=== PATIENT | female | born 1985 | race Caucasian/White ===

== ENCOUNTER 2019-01-31 09:01 | Emergency (ER) | payer BC, OTHER ==
--- NOTE | 2019-01-31 09:02 | PDOC ---
History of Present Illness - General Chief Complaint: Pain, Acute Stated Complaint: head pain Time Seen by Provider: 01/31/19 09:01 History Source: Patient Exam Limitations: No Limitations - History of Present Illness Initial Comments: 01/31/19 09:02 HPI 33 YOF with no significant medical history presenting with headache today. pt notes she bumped her head twice on the counter as she was cleaning in the kitchen 1 week ago. no LOC or seizure or AMS. the following day, she started having facial pain and sinus congestion, a/w intermittent nose bleeds with the heater on for her apartment. today she woke up with frontal headache, described as localized and pressure-like. also a/w right sided temporal headache, at the area where she hit her head. +right ear pain, feeling like there is fluid. +facial tingling. took NSAID this morning, without relief. LMP 1 week ago, normal, denies . prior ED visit for numbness/tingling, CT brain was unremarkable from 2016. Denies fever, chills, sore throat, eye pain/discharge, chest pain, SOB, palpitation, dizziness, weakness, N, V, D, abdominal pain, bladder and bowel problems, focal weakness/numbness, leg swelling/pain, rash. No sick contacts or travel. No new changes in medications. Allergies: None Past Medical History/PSH: as above Social history: Lives with family. No tobacco, ETOH or drug use. Meds: as documented in EMR Family history: noncontributory Review of systems Constitutional: no fevers or chills. No weakness HEENT: no dizziness, no visual or hearing disturbances, no eye pain or discharge. +headache, + ear pain +sinus congestion. CVS: no cp or syncope. Resp: no sob. No cough. Gastrointestinal: no abdominal pain, nausea, vomiting, diarrhea. Genitourinary: no urinary sx, hematuria. no retention or incontinence. MUSCULOSKELETAL: No joint pain and swelling. No neck or back pain. SKIN: no redness or skin changes, no discharge, no rash. No wounds. Hematologic: no easy bruising/bleeding. NEUROLOGIC: No dizziness, LOC, seizure or altered mental status. No weakness, + facial tinglilng. Psych: +anxiety. Allergic/Immunologic: no allergies All other systems reviewed and negative, or as documented in HPI. Physical exam General: Well appearing, awake and alert, NAD. HEENT: NCAT, PERRL, EOMI, clear conjunctiva, anicteric, moist mucus membranes, oropharynx clear. Airway patent, normal phonation. Uvula midline. no tonsillar hypertrophy. No sinus tenderness, TM clear, no pinna tenderness to manipulation. no epistaxis. +dry erythematous areas around nares. Neck: neck supple, FROM Resp: CTAB, normal and even respirations, no respiratory distress CVS: RRR, no murmurs, 2+ peripheral pulses throughout, no peripheral edema Abdomen: soft, NTND, no rebound or guarding. Back: nontender, normal inspection and ROM MSK: no edema, YOST x4, ROM intact. No clubbing or cyanosis. normal bulk and tone. Extremities: no calf tenderness Neuro: Alert, oriented appropriately. CN II-XII grossly intact. Strength prox and distally 5/5 throughout. Sensation grossly intact to light touch. YOST x4. No cerebellar signs, no dysmetria, bilateral finger to nose and heel to aranda equal and symmetric. Speech clear. Psych: Calm and cooperative Skin: warm and well perfused, cap refill <2 sec, normal color, no rash or skin discoloration. +dry erythematous areas around nose, no pus, no crusting, nontender. 01/31/19 09:25 Past History - Past Medical History Allergies/Adverse Reactions: Allergies Allergy/AdvReac Type Severity Reaction Status Date / Time No Known Allergies Allergy Verified 01/31/19 09:02 Home Medications: Ambulatory Orders Ibuprofen [Advil -] 200 mg PO PRN PRN 10/17/15 Anemia: Yes ("SLIGHT"-NO TREATMENT) Asthma: No Cancer: No Cardiac Disorders: No CVA: No COPD: No CHF: No Dementia: No Diabetes: No GI Disorders: No Disorders: No HTN: No Hypercholesterolemia: No Liver Disease: No Seizures: No Thyroid Disease: No - Psycho Social/Smoking Cessation Hx Smoking History: Never smoked Have you smoked in the past 12 months: No If you are a former smoker, when did you quit?: 05/2014 Hx Alcohol Use: No Drug/Substance Use Hx: No Substance Use Type: Alcohol Hx Substance Use Treatment: No Medical Decision Making - Medical Decision Making 01/31/19 09:21 Vital Signs Temp Pulse Resp BP Pulse Ox 98.9 F 72 15 107/70 99 01/31/19 09:01 01/31/19 09:01 01/31/19 09:01 01/31/19 09:01 01/31/19 09:01 33-year-old female presenting with frontal headache, does admit to sinus congestion and intermittent epistaxis due to the dry hot air in her apartment. She had remote head trauma about 1 week ago, no LOC or seizure or altered mental status. GCS is 15, neurologically intact. neurologic sx nonfocal, b/l facial tingling, no focal neuro deficits elicited. Complains of mostly frontal and right-sided parietal headache, CT head to evaluate for head bleed/injury. Will give additional analgesia, Tylenol here. Patient denies currently, LMP was 1 week ago. 01/31/19 10:07 CT head unremarkable, no mass or bleed or injury. feels improved, mild frontal [place], improved after tylenol neuro intact ambulatory, jacek PO. neuro/ENT followup advised humidifier use, hydration. analgesia. vaseline for nasal/skin dryness. Pt to be discharged in stable condition. Patient made aware of clinical impression, treatment recommendations and disposition plan, return precautions discussed (including but not limited to new or persistent/worsening symptoms, pain, fevers, or signs of infection, chest pain, respiratory distress, inability to tolerate oral intake, dehydration, syncope, or neurologic changes) . Follow up with PMD and/or specialist as recommended, follow up information provided, take medications as instructed for duration of time. continue with supportive care, avoid triggers and precipitants. All questions answered to patient's satisfaction and expressed understanding and comfort with this. At the time of discharge, the patient is alert, clinically improved, tolerating po and verbalizes understanding of instructions, satisfied with the care received and felt comfortable with the plan. Patient does not suffer from an acute life- threatening medical condition at this time and is safe for outpatient follow- up. Discharge - Discharge Information Problems reviewed: Yes Clinical Impression/Diagnosis: Headache Qualifiers: Headache type: unspecified Headache chronicity pattern: acute headache Intractability: not intractable Qualified Code(s): R51 - Headache Condition: Stable Disposition: HOME - Admission No - Follow up/Referral Referrals: Tripp Kim MD [Staff Physician] - Yoel Stein MD [Staff Physician] - Joni Hauser MD [Staff Physician] - - Patient Discharge Instructions Patient Printed Discharge Instructions: DI for Sinus Headache, DI for Headache Additional Instructions: 1) Please follow-up with your primary care doctor in the next 1-2 days. Please call tomorrow for for any urgent issues. neurology and ENT follow up provided. 2) You were given a copy of the tests performed today. Please bring the results with you and review them with your primary care doctor. Your imaging results were normal, 3) If you have any worsening of symptoms or any other concerns please return to the ED immediately. Return if worsening symptoms including fevers, headache, vomiting, visual or hearing disturbances, abdominal pain, chest pain, shortness of breath, syncope, dehydration, inability to take things by mouth/vomiting, altered mental status, or worsening concerning symptoms. Stay well hydrated and rest adequately. you can use vaseline for your dry skin around your nose. use humidifier to keep air around you moist to help your sinuses and nose bleeds. - Post Discharge Activity
[2019-01-31 09:11] VITALS: BP 107/70; PULSE 72; TEMP 98.9; BMI 24.0
[2019-01-31] MEDS ORDERED: ACETAMINOPHEN 325 MG TABLET (FP) PO ONE (09:17)
[2019-01-31] MEDS ORDERED: ACETAMINOPHEN 325 MG TABLET (FP) ONE (09:27)
== END 2019-01-31 10:15 | disposition home or self-care (01) ==
LOC: FER 09:01
DX: R51 Headache (principal); Z87.891 Personal history of nicotine dependence
CPT/HCPCS: 70450-TC; 99282-25